=== PATIENT | female | born 1995 | race Native Hawaiian/Other Pacific Islander ===

== ENCOUNTER 2022-01-02 22:01 | Emergency (ER) | payer OTHER ==
[~2022-01-02] VITALS: Ht 170.2 cm; Wt 79.5 kg
[2022-01-02 22:11] VITALS: TEMP 98.2
[2022-01-02] MEDS ORDERED: MEDROL 4MG DOSPA4 MG PO (22:52)
[2022-01-02] MEDS ORDERED: FLEXERIL 1010 MG/TAB PO (22:52)
[2022-01-02 23:11] VITALS: BP 124/80; PULSE 76
== END 2022-01-02 23:11 | disposition home or self-care (01) ==
LOC: COL.ER 22:01
DX: M54.50 Low back pain, unspecified (principal); F17.210 Nicotine dependence, cigarettes, uncomplicated; X50.0XXA Overexertion from strenuous movement or load, initial encounter
CPT/HCPCS: J1885; J2360

== ENCOUNTER 2022-12-23 09:46 | Emergency (ER) | payer OTHER ==
[~2022-12-23] VITALS: Ht 170.2 cm; Wt 77.3 kg
[~2022-12-23 09:46] MED LIST: FLEXERIL 1010 MG/TAB PO; MEDROL 4MG DOSPA4 MG PO; NORCO 325 MG-51 TAB PO
[2022-12-23 09:58] VITALS: TEMP 97.7
[2022-12-23 10:28] LABS: COLLECTION METHOD CLEAN CATCH
[2022-12-23 10:35] LABS: BASO % 0.3 % (0.0-2.0); EOS # 0.2 K/mm3 (0.0-0.7); EOS % 2.7 % (0.0-4.0); GRAN # 3.7 K/mm3 (1.4-6.5); GRAN % 50.7 % (42.2-75.2); HEMATOCRIT 41.4 % (37.0-47.0); HEMOGLOBIN 13.1 g/dl (12.5-16.0); LYMPH % 40.2 % (20.0-51.0); MEAN CELL VOLUME 82 fl (80.0-100.0); MEAN CORPUSCULAR HEMOGLOBIN 26 pg (27-31); MEAN CORPUSCULAR HGB CONC 32 g/dl (33.0-37.0); MONO # 0.4 K/mm3 (0.1-0.6); MONO % 5.8 % (1.7-9.3); PLATELET COUNT 338 K/mm3 (130-400); RED BLOOD COUNT 5.03 M/mm3 (4.10-5.30); REDCELL DISTRIBUTION WIDTH-CV 13.6 % (11.5-14.5)
[2022-12-23 10:37] LABS: MUCOUS Present (NOT PRESENT); URINE BACTERIA Rare /hpf (NONE SEEN); URINE RBC 0-2 /hpf (0-2)
[2022-12-23 10:38] LABS: PH 8.5 (5.0-8.5); URINE APPEARANCE Clear (CLEAR/HAZY); URINE BLOOD Negative (NEGATIVE); URINE COLOR Yellow (YELLOW); URINE GLUCOSE Negative (NEGATIVE); URINE KETONE TRACE (NEGATIVE); URINE NITRATE Negative (NEGATIVE); URINE PROTEIN(semi-quant) TRACE (NEGATIVE); URINE UROBILINOGEN 0.2 E.U/dL (0.2-1.0)
[2022-12-23 10:49] LABS: ALBUMIN 4.1 gm/dL (3.5-5.0); BILIRUBIN,TOTAL 0.2 mg/dL (0.2-1.2); CALCIUM 9.6 mg/dL (8.4-10.2); CREATININE, serum 0.73 mg/dL (0.57-1.11); POTASSIUM 3.8 mmol/L (3.5-4.5); TOTAL PROTEIN 8.2 gm/dL (6.2-8.1)
[2022-12-23] MEDS ORDERED: ZOFRAN ODT4 MG PO (11:56)
[2022-12-23 12:35] VITALS: BP 121/83; PULSE 63
== END 2022-12-23 12:35 | disposition home or self-care (01) ==
LOC: COL.ER 09:46
PROVIDERS: Emergency Medicine
DX: R10.11 Right upper quadrant pain (principal); D13.4 Benign neoplasm of liver; R11.0 Nausea; Z28.311 Partially vaccinated for COVID-19
CPT/HCPCS: J2270; J2405; J7030; Q9967